=== PATIENT | male | born 2000 | race African-American/Black ===

== ENCOUNTER 2023-07-29 13:54 | Emergency (ER) | payer BC ==
[2023-07-29] MEDS: Lidocaine 1% 5 ML VIAL INJECT ONE (15:25)
== END 2023-07-29 15:48 | disposition home or self-care (01) ==
LOC: MW.ED 13:54
DX: L05.01 Pilonidal cyst with abscess (principal); Z75.8 Other problems related to medical facilities and other health care
CPT/HCPCS: 10060; 10080; 99282; 99282-25; J3490

== ENCOUNTER 2023-07-31 18:53 | Emergency (ER) | payer BC | END 2023-07-31 19:15 | disposition left against medical advice (07) | LOC: MW.ED 18:53 | DX: Z53.21 Procedure and treatment not carried out due to patient leaving prior to being seen by health care provider (principal) ==

== ENCOUNTER 2023-10-16 18:33 | Emergency (ER) | payer BC ==
[2023-10-16] MEDS: Diphtheria,Pertussis(Acell),Tetanus Vaccine 0.5 ML Syringe IM ONE (20:07)
[2023-10-16] MEDS: Lidocaine 1% 5 ML VIAL INJECT ONE (20:12)
== END 2023-10-16 20:54 | disposition home or self-care (01) ==
LOC: MW.ED 18:33
DX: S01.511A Laceration without foreign body of lip, initial encounter (principal); Z75.8 Other problems related to medical facilities and other health care; Z79.899 Other long term (current) drug therapy; W22.8XXA Striking against or struck by other objects, initial encounter
CPT/HCPCS: 12011; 99282; 99283; J3490

== ENCOUNTER 2023-11-20 10:58 | Emergency (ER) | payer BC | END 2023-11-20 12:48 | disposition home or self-care (01) | LOC: MW.ED 10:58 | DX: M25.511 Pain in right shoulder (principal); Z75.8 Other problems related to medical facilities and other health care; W19.XXXA Unspecified fall, initial encounter; Y93.67 Activity, basketball | CPT/HCPCS: 73030-26-RT; 73030-RT; 99283 ==